=== PATIENT | female | born 1965 | race Caucasian/White ===

== ENCOUNTER 2016-12-17 22:13 | Emergency (ER) | payer BC ==
[~2016-12-17] VITALS: Ht 160 cm; Wt 54.0 kg
[~2016-12-17 22:13] MED LIST: CEPH-443 PO; DIPH25CA6; FLUO20CA38; LORA-407; NAPR-260 PO; [UNRECOGNIZED DRUG - REMARK]
[2016-12-17 22:45] VITALS: Ht 160 cm; Wt 54.0 kg
== END 2016-12-17 22:34 | disposition left against medical advice (07) ==
LOC: FTE 22:13
DX: Z53.21 Procedure and treatment not carried out due to patient leaving prior to being seen by health care provider (principal)

== ENCOUNTER 2017-09-20 12:50 | Emergency (ER) | payer OTHER ==
[~2017-09-20] VITALS: Ht 160 cm; Wt 66.9 kg
[2017-09-20 12:52] VITALS: Ht 160 cm; Wt 66.9 kg
[2017-09-20] MEDS ORDERED: AZIT250T94 PO (13:14)
[2017-09-20] MEDS ORDERED: IBUP-1542 PO (13:14)
[2017-09-20] MEDS ORDERED: GUAI-111 PO (13:14)
--- NOTE | 2017-09-20 13:17 | ERD ---
ER Documentation Chief Complaint Chief Complaint HEADACHE, SORE THROAT, BODY ACHES X 2 DAYS HPI This 52-year-old female presents with 3 day history of productive cough, body aches. She is low-grade fever triage. She has no chest pain or vomiting. ROS All systems reviewed and are negative except as per history of present illness. Medications Home Meds Active Scripts Ibuprofen* (Motrin*) 600 Mg Tab, 600 MG PO Q6H Y for PAIN, #14 TAB Prov:JAYLIN SANTOS MD 09/20/17 Guaifenesin/Pseudoephedrne HCl (Mucinex D ER 600-60 mg Tablet) 1 Each Tab.er.12h , 1 EACH PO BID for 7 Days, #14 TAB Prov:JAYLIN SANTOS MD 09/20/17 Azithromycin* (Zithromax*) 250 Mg Tablet, 250 MG PO .ZPACK DIRECTED, #6 TAB TAKE 500 MG (2 TABS) THE FIRST DAY THEN 250 MG (1 TAB) DAYS 2-5 Prov:JAYLIN SANTOS MD 09/20/17 Naproxen* (Naprosyn*) 500 Mg Tablet, 500 MG PO BID Y for PAIN AND/OR INFLAMMATION, #30 TAB Prov:NICOLE PENA PA-C 10/17/16 Cephalexin* (Keflex*) 500 Mg Capsule, 500 MG PO QID for 7 Days, CAP Prov:NICOLE PENA PA-C 10/17/16 Reported Medications [No New Mwds] No Conflict Check 05/06/11 Diphenhydramine Hcl (Benadryl) 25 Mg Cap 06/20/10 Loratadine (Claritin) 10 Mg Tablet 06/20/10 Fluoxetine Hcl* (Prozac*) 20 Mg Capsule 06/20/10 Allergies Allergies: Coded Allergies: No Known Drug Allergy (Verified Allergy, Unknown, 08/02/11) PMhx/Soc History of Surgery: Yes (GASTRIC SLEEVE) Anesthesia Reaction: No Hx Neurological Disorder: No Hx Respiratory Disorders: No Hx Cardiac Disorders: No Hx Psychiatric Problems: Yes (DEPRESSION) Hx Miscellaneous Medical Probl: No Hx Alcohol Use: No Hx Substance Use: No Hx Tobacco Use: Yes Smoking Status: Current some day smoker Physical Exam Vitals Vital Signs Date Time Temp Pulse Resp B/P Pulse Ox O2 Delivery O2 Flow Rate FiO2 09/20/17 12:52 100.2 106 24 115/71 100 Physical Exam Const: [], [id number]. Head: Atraumatic Eyes: Normal Conjunctiva ENT: Normal External Ears, Nose and Mouth. He was and oropharynx normal. Neck: Full range of motion..~ No meningismus. Resp: Clear to auscultation bilaterally rhonchi without rales, wheezing or retractions. Cardio: Regular rate and rhythm, no murmurs Abd: Soft, non tender, non distended. Normal bowel sounds Skin: No petechiae or rashes Back: No midline or flank tenderness Ext: No cyanosis, or edema Neur: Awake and alert Psych: Normal Mood and Affect Results 24 hrs Current Medications Medications (Trade) Dose Ordered Sig/Toi Route PRN Reason Start Time Stop Time Status Last Admin Dose Admin Acetaminophen (Tylenol Tab) 650 mg ONCE ONCE PO 09/20/17 13:30 09/20/17 13:31 Procedures/MDM Patient presents with URI symptoms and body aches and low-grade fever for last 3 days. Patient has no signs to suggest sepsis hypoxemia or respiratory distress. She may have a viral URI but given the productive cough with treated with Mucinex DM, Zithromax and ibuprofen. She is given Tylenol here in the ED. The patient was stable with no new complaints during the ER course. Clinically, there is no current evidence to suggest meningitis, sepsis, acute abdomen, pneumonia, acute coronary syndrome, pulmonary embolism, or any other emergent condition appearing to require further evaluation or hospitalization. The patient should certainly return for any new or worsening symptoms per the aftercare instructions. They should otherwise follow-up with her primary care doctor for reevaluation this week. Departure Diagnosis: Primary Impression: Upper respiratory infection URI type: unspecified URI Qualified Code: J06.9 - Upper respiratory tract infection, unspecified type Condition: Stable Patient Instructions: Acute Bronchitis Additional Instructions: Recheck for new or worsening symptoms or primary care doctor. JAYLIN SANTOS MD Sep 20, 2017 13:17
[2017-09-20] MEDS ORDERED: ACETAMINOPHEN 325 MG TAB PO ONE (13:30)
== END 2017-09-20 13:38 | disposition home or self-care (01) ==
LOC: FTE 12:50
DX: J06.9 Acute upper respiratory infection, unspecified (principal); F17.210 Nicotine dependence, cigarettes, uncomplicated
CPT/HCPCS: Z7502; Z7610; 99283

== ENCOUNTER 2017-10-06 09:01 | Emergency (ER) | payer OTHER ==
[~2017-10-06] VITALS: Ht 162.6 cm; Wt 67.2 kg
[~2017-10-06 09:01] MED LIST changes: +AZIT250T94 PO; +GUAI-111 PO; +IBUP-1542 PO
[2017-10-06 09:03] VITALS: Ht 162.6 cm; Wt 67.2 kg
--- NOTE | 2017-10-06 09:40 | ERD ---
ER Documentation Chief Complaint Chief Complaint b/l hand and arm pain x 3 days , no trauma HPI 52-year-old female, presents to emergency department complaining of 3 days with worsening of bilateral hand edema and tenderness, after moving stuff from her house. The pain is dull, constant, 7/10. Denies fevers, chills. No weakness, numbness, tingling. No treatment attempted at this time. History provided by patient. ROS A 12-point review of systems was performed and negative other than presented in the history of present illness. SYSTEMIC symptoms: no fever, chills, no night sweats, no weight loss EYE symptoms: No blurred vision, no eye discharge OTOLARYNGEAL symptoms: No hearing loss. No ear pain, no sore throat CARDIOVASCULAR symptoms: No chest pain or discomfort, no palpitations. PULMONARY symptoms: No dyspnea, no cough, no wheezing. GASTROINTESTINAL symptoms: No abdominal pain, no nausea, no vomiting, no diarrhea MUSCULOSKELETAL symptoms: Per HPI NEUROLOGY symptoms: No confusion, no syncope, no numbness or tingling. SKIN: No rashes Medications Home Meds Active Scripts Prednisone* (Prednisone*) 20 Mg Tab, 40 MG PO DAILY for 4 Days, TAB Prov:JOSSELIN ESCOBAR MD 10/06/17 Hydrocortisone* Topical (Hydrocortisone* Topical) 2.5%-28.3 Gm Cream..g., 1 APPLIC TOP BID, #1 TUB Prov:JOSSELIN ESCOBAR MD 10/06/17 Hydrocodone/Acetaminophen ([place] 5-325 Tablet) 1 Each Tablet, 1 TAB PO Q6H Y for PAIN, #10 TAB Prov:JOSSELIN ESCOBAR MD 10/06/17 Ibuprofen* (Motrin*) 600 Mg Tab, 600 MG PO Q6H Y for PAIN, #14 TAB Prov:JAYLIN SANTOS MD 09/20/17 Guaifenesin/Pseudoephedrne HCl (Mucinex D ER 600-60 mg Tablet) 1 Each Tab.er.12h , 1 EACH PO BID for 7 Days, #14 TAB Prov:JAYLIN SANTOS MD 09/20/17 Azithromycin* (Zithromax*) 250 Mg Tablet, 250 MG PO .JESSICA DIRECTED, #6 TAB TAKE 500 MG (2 TABS) THE FIRST DAY THEN 250 MG (1 TAB) DAYS 2-5 Prov:JAYLIN SANTOS MD 09/20/17 Naproxen* (Naprosyn*) 500 Mg Tablet, 500 MG PO BID Y for PAIN AND/OR INFLAMMATION, #30 TAB Prov:NICOLE PENA PA-C 10/17/16 Cephalexin* (Keflex*) 500 Mg Capsule, 500 MG PO QID for 7 Days, CAP Prov:NICOLE PENA PA-C 10/17/16 Reported Medications [No New Mwds] No Conflict Check 05/06/11 Diphenhydramine Hcl (Benadryl) 25 Mg Cap 06/20/10 Loratadine (Claritin) 10 Mg Tablet 06/20/10 Fluoxetine Hcl* (Prozac*) 20 Mg Capsule 06/20/10 Allergies Allergies: Coded Allergies: No Known Drug Allergy (Verified Allergy, Unknown, 08/02/11) PMhx/Soc History of Surgery: Yes (GASTRIC SLEEVE) Anesthesia Reaction: No Hx Neurological Disorder: No Hx Respiratory Disorders: No Hx Cardiac Disorders: No Hx Psychiatric Problems: Yes (DEPRESSION) Hx Miscellaneous Medical Probl: No Hx Alcohol Use: No Hx Substance Use: No Hx Tobacco Use: Yes Smoking Status: Current every day smoker Physical Exam Vitals Vital Signs Date Time Temp Pulse Resp B/P Pulse Ox O2 Delivery O2 Flow Rate FiO2 10/06/17 09:03 97.4 84 18 140/81 99 Physical Exam Patient seems in mild distress, vital signs stable. Alert and fully oriented. EYES: PERRLA, EOMI, Sclera and conjunctiva appear normal. EARS: Canals clear, tympanic membranes WNL THROAT: Normal oropharynx. NECK: Supple, No lymphadenopathy. Full ROM without pain or tenderness. HEART: RRR, no rubs, murmurs, clicks or gallops. LUNGS: Clear to auscultation. ABDOMEN: Soft, non-tender without masses or hepatosplenomegaly. EXTREMITIES: Mild edema bilateral hands noticed, full range of motion, capillary refill less than 3 seconds BACK: Full ROM, no deformity, normal back exam NEURO: Cranial nerves grossly intact, no motor or sensory deficit Results 24 hrs Current Medications Medications (Trade) Dose Ordered Sig/Toi Route PRN Reason Start Time Stop Time Status Last Admin Dose Admin Dexamethasone (Decadron) 10 mg ONCE ONCE IM 10/06/17 10:00 10/06/17 10:01 DC 10/06/17 09:54 Ketorolac Tromethamine (Toradol) 30 mg ONCE STAT IM 10/06/17 09:44 10/06/17 09:45 DC 10/06/17 09:54 Procedures/MDM 52-year-old female, presents complaining of bilateral hand swelling and tenderness for 3 days after physical activity. Vital signs stable, Physical exam revealed mild bilateral hand swelling. Differential diagnosis include but not limited to: Arthritis, tendinitis, autoimmune disease, thyroid disease. Low suspicion for cellulitis, acute systemic process. Physical examination and clinical presentation consistent most likely with tendinitis. During the ED course the patient remained stable, no new complaints. The patient received treatment with Toradol IM presenting overall improvement of the symptoms. Results and clinical impression discussed with patient who agrees with management. The patient is stable to be treated outpatient and will be discharged home with a Rx for anti-inflammatories and [place], some side effects of prescribed medications (headache, rash, nausea, vomiting, diarrhea, drowsiness, habituation, bleeding, hypertension, interactions with other medications) were reviewed. The patient was instructed to follow up with the primary care provider in the next 48h. If symptoms persist, worsen or new symptoms develop, then patient should return to the ED immediately. Instructions explained and given directly by me to the patient in Swedish with acknowledgment and demonstrated understanding. Disclaimer: Inadvertent spelling and grammatical errors are likely due to EHR/ dictation software use and do not reflect on the overall quality of patient care. Also, please note that the electronic time recorded on this note does not necessarily reflect the actual time of the patient encounter. Departure Diagnosis: Primary Impression: Tendonitis Condition: Stable Additional Instructions: Call your primary care doctor TOMORROW for an appointment during the next 1-2 days. See the doctor sooner or return here if your condition worsens before your appointment time. Thank you very much for allowing us to participate in your care. Your health and safety is our top priority at [facility]. Have prescriptions filled and follow precisely the directions on the label. Follow-up with primary care provider during the next 4 days and bring all the information and medications prescribed. If illness has not improved in 2 days, then make an appointment with primary care provider. If the provider is unavailable, return to the Emergency Department immediately. JOSSELIN ESCOBAR MD Oct 06, 2017 09:40
[2017-10-06] MEDS ORDERED: KETOROLAC 30 MG INJ IM STA (09:44)
[2017-10-06] MEDS ORDERED: DEXAMETHASONE 10 MG/ML 1 ML INJ IM ONE (10:00)
[2017-10-06] MEDS ORDERED: HYDR-906 PO (10:41)
[2017-10-06] MEDS ORDERED: PRED20TA PO (10:46)
[2017-10-06] MEDS ORDERED: HC30CR25 TOP (10:46)
== END 2017-10-06 11:03 | disposition home or self-care (01) ==
LOC: FTE 09:01
DX: M77.9 Enthesopathy, unspecified (principal)
CPT/HCPCS: 96372; J1100; J1885; Z7502

== ENCOUNTER 2017-10-20 01:56 | Emergency (ER) | END 2017-10-20 04:00 | disposition left against medical advice (07) ==